=== PATIENT | male | born 2000 | race Caucasian/White ===

== ENCOUNTER 2020-10-03 18:12 | Emergency (ER) | payer SELFPAY ==
[~2020-10-03] VITALS: Ht 188 cm; Wt 79.5 kg
[2020-10-03] MEDS ORDERED: PENICILLN VK500 MG PO (18:49)
[2020-10-03 18:56] VITALS: BP 120/72
== END 2020-10-03 18:56 | disposition home or self-care (01) | DRG 158 ==
LOC: ED 18:12
DX: K04.7 Periapical abscess without sinus (principal); M84.68XA Pathological fracture in other disease, other site, initial encounter for fracture; K02.9 Dental caries, unspecified